=== PATIENT | male | born 1960 | race Caucasian/White ===

== ENCOUNTER 2022-04-19 19:45 | Inpatient (IN) | payer MEDICAID ==
[~2022-04-19] VITALS: Ht 172.7 cm; Wt 108.9 kg
[2022-04-19] MEDS ORDERED: iohexoL 350 mgI/mL, 100 ML INFUS..BTL IV ONE (19:57)
[2022-04-19 20:02] VITALS: BP_SYST 157
[2022-04-19 20:13] LABS: BASOPHILS % (AUTO) 0.8 % (0.0-2.0); EOSINOPHILS # (AUTO) 0.1 K/uL (0.0-0.4); EOSINOPHILS % (AUTO) 2.1 % (0.0-4.0); HEMATOCRIT 38.4 % (36-54); HEMOGLOBIN 13.5 g/dL (14.0-18.0); LYMPHOCYTES # (AUTO) 0.7 K/uL (1.0-5.5); LYMPHOCYTES % (AUTO) 30.2 % (20.5-51.5); MEAN CORPUSCULAR HEMOGLOBIN 33 pg (27-31); MEAN CORPUSCULAR HGB CONC 35 % (32-36); MEAN CORPUSCULAR VOLUME 94 fL (79.0-98.0); MONOCYTES # (AUTO) 0.3 K/uL (0.0-1.0); MONOCYTES % (AUTO) 10.6 % (1.7-9.3); NEUTROPHILS # (AUTO) 1.3 K/uL (1.8-7.7); NEUTROPHILS % (AUTO) 56.3 % (40.0-70.0); RED BLOOD CELL COUNT(AUTO) 4.08 MIL/uL (4.2-6.2); RED CELL DISTRIBUTION WIDTH 15.4 % (9.0-15.0); WHITE BLOOD COUNT (AUTO) 2.4 K/uL (4.8-10.8)
[2022-04-19 20:32] LABS: PLATELET COUNT (AUTO) 80 K/uL (130-430)
[2022-04-19] MEDS ORDERED: ALTEPLASE 100 MG IV ONE (20:39)
[2022-04-19] MEDS ORDERED: ALTEPLASE 100 MG VIAL IV ONE (20:45)
[2022-04-19] MEDS ORDERED: ALTEPLASE 100 MG VIAL IVP ONE (20:45)
[2022-04-19 20:49] LABS: INR 1.3 (0.80-1.20); PROTHROMBIN TIME 13.2 SECS (9.5-12.5)
[2022-04-19 20:52] LABS: ALBUMIN 3.3 g/dL (3.4-4.8); CALCIUM 8.5 mg/dL (8.4-11.0); CREATININE 0.83 mg/dL (0.55-1.30); TOTAL BILIRUBIN 0.8 mg/dL (0.0-1.0)
[2022-04-19] MEDS ORDERED: LORazepam 2 MG/ML VIAL ONE (21:02)
[2022-04-19] MEDS ORDERED: levETIRAcetam 1,000 MG in NS 90 ML IV ONE (21:15)
[2022-04-19] MEDS ORDERED: LORazepam 2 MG/ML VIAL IVP ONE (21:15)
[2022-04-19] MEDS: NACL 0.9% 1,000 ML IV SCH (23:04)
[2022-04-20] VITALS (20 sets, daily range): BP systolic 95–141
[2022-04-20 06:46] LABS: BASOPHILS % (AUTO) 0.4 % (0.0-2.0); EOSINOPHILS # (AUTO) 0.1 K/uL (0.0-0.4); EOSINOPHILS % (AUTO) 2.8 % (0.0-4.0); HEMATOCRIT 37.6 % (36-54); HEMOGLOBIN 13.2 g/dL (14.0-18.0); LYMPHOCYTES # (AUTO) 0.8 K/uL (1.0-5.5); LYMPHOCYTES % (AUTO) 32.6 % (20.5-51.5); MEAN CORPUSCULAR HEMOGLOBIN 33 pg (27-31); MEAN CORPUSCULAR HGB CONC 35 % (32-36); MEAN CORPUSCULAR VOLUME 93 fL (79.0-98.0); MONOCYTES # (AUTO) 0.3 K/uL (0.0-1.0); MONOCYTES % (AUTO) 11.6 % (1.7-9.3); NEUTROPHILS # (AUTO) 1.3 K/uL (1.8-7.7); NEUTROPHILS % (AUTO) 52.6 % (40.0-70.0); RED BLOOD CELL COUNT(AUTO) 4.03 MIL/uL (4.2-6.2); RED CELL DISTRIBUTION WIDTH 14.8 % (9.0-15.0); WHITE BLOOD COUNT (AUTO) 2.4 K/uL (4.8-10.8)
[2022-04-20 07:46] LABS: ALBUMIN 3.3 g/dL (3.4-4.8); CALCIUM 8.6 mg/dL (8.4-11.0); CREATININE 0.67 mg/dL (0.55-1.30); TOTAL BILIRUBIN 0.9 mg/dL (0.0-1.0)
[2022-04-20 08:53] LABS: PLATELET COUNT (AUTO) 41 K/uL (130-430)
[2022-04-20] MEDS: NACL 0.9% 1,000 ML IV SCH ×2 (09:00→14:36)
[2022-04-20] MEDS ORDERED: levETIRAcetam 500 MG IV PREMIX 100 ML IV SCH ×2 (09:00)
[2022-04-20] MEDS ORDERED: LORazepam 2 MG/ML VIAL IVP PRN (13:30)
[2022-04-20] MEDS ORDERED: POLY17PO4 PO (18:51)
[2022-04-20] MEDS ORDERED: TRAZ-251 PO (18:51)
[2022-04-20] MEDS ORDERED: [UNRECOGNIZED DRUG - CODE] BOTH EYES (18:51)
[2022-04-20] MEDS ORDERED: LEVE750T66 PO (18:51)
[2022-04-20] MEDS ORDERED: FAMO-279 PO (18:51)
[2022-04-20] MEDS ORDERED: MENT1ADH TP (18:51)
[2022-04-20] MEDS ORDERED: CALC500T63 PO (18:51)
[2022-04-20] MEDS ORDERED: FOLI-43 PO (18:51)
[2022-04-20] MEDS ORDERED: THIA50TA10 PO (18:51)
[2022-04-20] MEDS ORDERED: MELA5TAB12 PO (18:51)
[2022-04-20] MEDS ORDERED: LACT10SO6 PO (18:51)
[2022-04-20] MEDS ORDERED: MULT-1089 PO (18:51)
[2022-04-20] MEDS ORDERED: CALC-1140 PO (18:51)
[2022-04-20] MEDS ORDERED: ACET325T PO (18:51)
[2022-04-20] MEDS ORDERED: ACETAMINOPHEN 325 MG TABLET PO PRN ×2 (20:15→20:30)
[2022-04-20] MEDS: traZODone HCL 50 MG TABLET (DESYREL) PO SCH (21:05)
[2022-04-20] MEDS: LamoTRIgine 25 MG TABLET PO SCH (21:05)
[2022-04-20] MEDS: levETIRAcetam 1,500 MG in NS 85 ML IV SCH (21:07)
[2022-04-20] MEDS ORDERED: CALCIUM CARBONATE 500 MG/ TAB.CHEW PO SCH (22:45)
[2022-04-20] MEDS: CALCIUM CARBONATE 500 MG/ TAB.CHEW PO PRN (22:57)
[2022-04-21 00:40] VITALS: BP_SYST 137
[2022-04-21] MEDS: NACL 0.9% 1,000 ML IV SCH ×2 (05:20→17:12)
[2022-04-21 08:21] VITALS: BP_SYST 124
[2022-04-21] MEDS: LamoTRIgine 25 MG TABLET PO SCH ×2 (08:38→20:29)
[2022-04-21] MEDS: LACTULOSE 20 GM/30 ML UDC PO SCH (08:39)
[2022-04-21] MEDS: levETIRAcetam 1,500 MG in NS 85 ML IV SCH ×2 (08:41→20:30)
[2022-04-21] MEDS ORDERED: NON-FORMULARY MEDICATION (Lactulose 30 ML) PO SCH (09:00)
[2022-04-21 11:23] VITALS: BP_SYST 118
[2022-04-21 15:21] VITALS: BP_SYST 148
[2022-04-21] MEDS: CALCIUM CARBONATE 500 MG/ TAB.CHEW PO PRN (19:30)
[2022-04-21 20:00] VITALS: BP_SYST 154
[2022-04-21] MEDS: traZODone HCL 50 MG TABLET (DESYREL) PO SCH (20:28)
[2022-04-21 23:39] VITALS: BP_SYST 154
[2022-04-22 00:41] VITALS: BP_SYST 142
[2022-04-22 07:48] LABS: BASOPHILS % (AUTO) 0.5 % (0.0-2.0); EOSINOPHILS % (AUTO) 2.3 % (0.0-4.0); HEMATOCRIT 38.3 % (36-54); HEMOGLOBIN 13.5 g/dL (14.0-18.0); LYMPHOCYTES # (AUTO) 0.6 K/uL (1.0-5.5); LYMPHOCYTES % (AUTO) 29.1 % (20.5-51.5); MEAN CORPUSCULAR HEMOGLOBIN 33 pg (27-31); MEAN CORPUSCULAR HGB CONC 35 % (32-36); MEAN CORPUSCULAR VOLUME 93 fL (79.0-98.0); MONOCYTES # (AUTO) 0.2 K/uL (0.0-1.0); MONOCYTES % (AUTO) 10.9 % (1.7-9.3); NEUTROPHILS # (AUTO) 1.2 K/uL (1.8-7.7); NEUTROPHILS % (AUTO) 57.2 % (40.0-70.0); RED BLOOD CELL COUNT(AUTO) 4.13 MIL/uL (4.2-6.2); RED CELL DISTRIBUTION WIDTH 14.9 % (9.0-15.0); WHITE BLOOD COUNT (AUTO) 2.1 K/uL (4.8-10.8)
[2022-04-22 07:58] LABS: INR 1.3 (0.80-1.20); PROTHROMBIN TIME 12.7 SECS (9.5-12.5)
[2022-04-22 08:12] LABS: ALBUMIN 3.5 g/dL (3.4-4.8); CALCIUM 8.5 mg/dL (8.4-11.0); CREATININE 0.73 mg/dL (0.55-1.30); TOTAL BILIRUBIN 1.3 mg/dL (0.0-1.0)
[2022-04-22 08:29] LABS: PLATELET COUNT (AUTO) 44 K/uL (130-430)
[2022-04-22] MEDS: LACTULOSE 20 GM/30 ML UDC PO SCH (08:46)
[2022-04-22] MEDS: levETIRAcetam 500 MG TABLET PO SCH ×2 (08:46→20:28)
[2022-04-22] MEDS: LamoTRIgine 25 MG TABLET PO SCH ×2 (08:46→20:28)
[2022-04-22 11:18] VITALS: BP_SYST 124
[2022-04-22] MEDS: CALCIUM CARBONATE 500 MG/ TAB.CHEW PO PRN ×2 (14:20→20:27)
[2022-04-22 15:38] VITALS: BP_SYST 131
[2022-04-22 15:44] VITALS: BP_SYST 143
[2022-04-22 20:00] VITALS: BP_SYST 164
[2022-04-22] MEDS: traZODone HCL 50 MG TABLET (DESYREL) PO SCH (20:28)
[2022-04-23 00:01] VITALS: BP_SYST 143
== END 2022-04-23 06:35 | DRG 53 ==
LOC: SED 19:45 → SIC 22:31 → STU 04-20 16:02
PROVIDERS: ADMIT Family Medicine; ATTEND Family Medicine
DX: G40.901 Epilepsy, unspecified, not intractable, with status epilepticus (principal); G93.41 Metabolic encephalopathy; E46 Unspecified protein-calorie malnutrition; D69.6 Thrombocytopenia, unspecified; K70.30 Alcoholic cirrhosis of liver without ascites; I69.351 Hemiplegia and hemiparesis following cerebral infarction affecting right dominant side; B19.20 Unspecified viral hepatitis C without hepatic coma; E78.00 Pure hypercholesterolemia, unspecified; I10 Essential (primary) hypertension; R13.10 Dysphagia, unspecified; Z20.822 Contact with and (suspected) exposure to COVID-19; Z68.36 Body mass index [BMI] 36.0-36.9, adult
CPT/HCPCS: 36415; 70450-TC; 70496; 70498; 71045; 76376; 80053; 82140; 82150; 82962; 83690; 84484; 85025; 85610-TC; 85730-TC; 86870; 86886; 86900; 86901; 87081; 92610-GN; 93005; 96365; 96375; 97110-GP; 97116-GP; 97530-GP; 99291; G0378; G0482; J1953; J2060; J2997; Q9967